=== PATIENT | male | born 1965 | race Caucasian/White ===

== ENCOUNTER → 2017-03-07 | Outpatient (CLI) | payer MEDICARE, MEDICAID ==
[~2017-03-07] MED LIST: ACTICLATE75 MG PO; ATIVAN 1MG T1 MG/TAB PO; COLACE 100100 MG/CAP PO; DILAUDID 2MG TAB2 MG PO; DITROPAN 5MG TAB5 MG PO; EFFEXOR 3737.5 MG/TA PO; EFFEXOR 75M75 MG/TAB PO; FLEXERIL 1010 MG/TAB PO; MACROBID 1100 MG/CAP PO; MARINOL 2.5MG2.5 MG PO; MOTRIN 800800 MG/TAB PO; MULTIPLE VITAMI1 CAP PO; NORCO 325 MG-51 TAB PO; PERCOCET 325 MG1 TA2 PO; VALIUM 5MG T5 MG/TAB PO; VITAMIN C500 MG PO; VITAMIN D1000 IU PO; ZANTAC 150MG T150 MG PO; ZINC10 M1
== END ==
LOC: COL.RAD 10:31
DX: K80.20 Calculus of gallbladder without cholecystitis without obstruction (principal); Q76.49 Other congenital malformations of spine, not associated with scoliosis; M89.38 Hypertrophy of bone, other site; M16.0 Bilateral primary osteoarthritis of hip; N32.89 Other specified disorders of bladder; M48.04 Spinal stenosis, thoracic region; Z93.3 Colostomy status
CPT/HCPCS: Q9967

== ENCOUNTER 2017-07-10 15:04 | Inpatient (IN) | payer MEDICARE, MEDICAID ==
[~2017-07-10] VITALS: Ht 188 cm; Wt 72.2 kg
[~2017-07-10 15:04] MED LIST changes: +BACTRIM 400 MG-1 TAB PO; +EFFEXOR-XR150 MG PO; +ELIQUIS 5MG PO; +PHARMASSURE ZIN50 MG PO; -VITAMIN D1000 IU PO; +VITAMIN D31000 I1 PO; -ZINC10 M1
[2017-07-10] MEDS ORDERED: NORCO 325 MG-7.1 TAB PO (15:45)
[2017-07-10 17:08] LABS: COLLECTION METHOD CATHETER
[2017-07-10 17:31] VITALS: BP 126/74; PULSE 99; TEMP 99.6
[2017-07-10 17:35] LABS: MUCOUS Present /lpf; PH 5 (5-8); SQUAMOUS EPITHELIAL 0-2 /hpf; URINE APPEARANCE Clear; URINE BACTERIA Many /hpf; URINE BILIRUBIN Negative (NEGATIVE); URINE BLOOD 1+ (NEGATIVE); URINE COLOR Amber; URINE GLUCOSE Negative (NEGATIVE); URINE KETONE Negative (NEGATIVE); URINE LEUKOCYTE ESTERASE 3+ (NEGATIVE); URINE NITRATE Positive (NEGATIVE); URINE PROTEIN(semi-quant) Negative (NEGATIVE); URINE RBC 0-2 /hpf; URINE UROBILINOGEN Negative (NEGATIVE); URINE WBC >50 /hpf
[2017-07-10 19:49] VITALS: BP 121/64; PULSE 120; TEMP 99.9
[2017-07-11 00:47] VITALS: BP 118/73; PULSE 104; TEMP 100.1
[2017-07-11 05:32] VITALS: BP 120/69; PULSE 72; TEMP 99.4
[2017-07-11 06:38] LABS: BASO # 0.1 (0.0-0.2); BASO % 0.3 % (0.0-2.0); EOS # 0.1 (0.0-0.7); EOS % 0.3 % (0-4.0); GRAN # 14.5 (1.4-6.5); GRAN % 75.8 % (42.2-75.2); HEMATOCRIT 37.7 % (42.0-52.0); HEMOGLOBIN 12.2 g/dl (13.5-18.0); LYMPH # 2.5 (1.2-3.4); LYMPH % 13.3 % (20.0-51.0); MEAN CELL VOLUME 97 fl (80.0-100.0); MEAN CORPUSCULAR HEMOGLOBIN 31 pg (27.0-31.0); MEAN CORPUSCULAR HGB CONC 32 g/dl (33.0-37.0); MONO # 1.8 (0.1-0.6); MONO % 9.7 % (1.7-9.3); PLATELET COUNT 358 K/mm3 (130-400); RED BLOOD COUNT 3.88 M/mm3 (4.20-5.60); REDCELL DISTRIBUTION WIDTH-CV 13.4 % (11.5-14.5)
[2017-07-11 06:47] LABS: BILIRUBIN,TOTAL 0.3 mg/dL (0.0-1.0); CALCIUM 8.2 mg/dL (8.4-10.2); CREATININE, serum 0.43 mg/dL (0.66-1.25); MAGNESIUM 1.9 mg/dL (1.6-2.3); PHOSPHOROUS 2.9 mg/dL (2.5-4.5); POTASSIUM 3.3 mmol/L (3.4-5.0); TOTAL PROTEIN 6.5 gm/dL (6.4-8.2)
[2017-07-11 07:19] VITALS: BP 125/73; PULSE 93; TEMP 99.5
[2017-07-11 11:17] VITALS: BP 110/71; PULSE 90; TEMP 98.6
[2017-07-11 15:28] VITALS: BP 127/84; PULSE 87; TEMP 98.7
[2017-07-11 20:06] VITALS: BP 125/83; PULSE 81; TEMP 98.5
[2017-07-12 00:10] VITALS: BP 127/84; PULSE 75; TEMP 99.2
[2017-07-12 03:19] VITALS: BP 128/86; PULSE 80; TEMP 98.8
[2017-07-12 07:32] VITALS: BP 135/85; PULSE 81; TEMP 98.5
[2017-07-12 08:32] LABS: BASO % 0.2 % (0.0-2.0); EOS # 0.2 (0.0-0.7); EOS % 1.1 % (0-4.0); GRAN # 9.7 (1.4-6.5); GRAN % 74.2 % (42.2-75.2); HEMATOCRIT 38.5 % (42.0-52.0); HEMOGLOBIN 12.4 g/dl (13.5-18.0); LYMPH # 2.2 (1.2-3.4); LYMPH % 16.4 % (20.0-51.0); MEAN CELL VOLUME 97 fl (80.0-100.0); MEAN CORPUSCULAR HEMOGLOBIN 31 pg (27.0-31.0); MEAN CORPUSCULAR HGB CONC 32 g/dl (33.0-37.0); MEAN PLATELET VOLUME 9.3 fl (7.4-10.4); MONO % 7.5 % (1.7-9.3); PLATELET COUNT 402 K/mm3 (130-400); RED BLOOD COUNT 3.97 M/mm3 (4.20-5.60); REDCELL DISTRIBUTION WIDTH-CV 13.1 % (11.5-14.5)
[2017-07-12 08:43] LABS: CALCIUM 8.6 mg/dL (8.4-10.2); CREATININE, serum 0.37 mg/dL (0.66-1.25); MAGNESIUM 1.8 mg/dL (1.6-2.3); POTASSIUM 3.8 mmol/L (3.4-5.0)
[2017-07-12 11:40] VITALS: BP 106/90; PULSE 94; TEMP 97.7
[2017-07-12 15:49] VITALS: BP 126/79; PULSE 73; TEMP 98.4
[2017-07-12 22:16] VITALS: BP 138/87; PULSE 81; TEMP 98.8
[2017-07-13 03:10] VITALS: BP 128/80; PULSE 83; TEMP 97.9
[2017-07-13 07:30] LABS: BASO % 0.4 % (0.0-2.0); EOS # 0.2 (0.0-0.7); EOS % 1.9 % (0-4.0); GRAN # 6.9 (1.4-6.5); GRAN % 63.6 % (42.2-75.2); HEMATOCRIT 39.5 % (42.0-52.0); LYMPH # 2.9 (1.2-3.4); LYMPH % 26.6 % (20.0-51.0); MEAN CELL VOLUME 97 fl (80.0-100.0); MEAN CORPUSCULAR HEMOGLOBIN 32 pg (27.0-31.0); MEAN CORPUSCULAR HGB CONC 33 g/dl (33.0-37.0); MEAN PLATELET VOLUME 9.3 fl (7.4-10.4); MONO # 0.8 (0.1-0.6); PLATELET COUNT 463 K/mm3 (130-400); RED BLOOD COUNT 4.07 M/mm3 (4.20-5.60)
[2017-07-13 07:47] LABS: CALCIUM 8.9 mg/dL (8.4-10.2); CREATININE, serum 0.39 mg/dL (0.66-1.25); MAGNESIUM 1.9 mg/dL (1.6-2.3); POTASSIUM 3.9 mmol/L (3.4-5.0)
[2017-07-13 08:33] VITALS: BP 125/86; PULSE 79; TEMP 98
[2017-07-13 11:41] VITALS: BP 107/68; PULSE 92; TEMP 98.4
[2017-07-13 16:20] VITALS: BP 118/69; PULSE 81; TEMP 97.7
[2017-07-13 19:58] VITALS: BP 135/88; PULSE 76; TEMP 97.4
[2017-07-14 00:07] VITALS: BP 116/82; PULSE 76; TEMP 98.6
[2017-07-14 04:18] VITALS: BP 119/81; PULSE 81; TEMP 98.5
[2017-07-14 07:01] LABS: BASO % 0.4 % (0.0-2.0); EOS # 0.3 (0.0-0.7); EOS % 2.5 % (0-4.0); GRAN # 6.6 (1.4-6.5); GRAN % 60.8 % (42.2-75.2); HEMATOCRIT 41.3 % (42.0-52.0); HEMOGLOBIN 13.4 g/dl (13.5-18.0); LYMPH # 3.1 (1.2-3.4); LYMPH % 28.2 % (20.0-51.0); MEAN CELL VOLUME 96 fl (80.0-100.0); MEAN CORPUSCULAR HEMOGLOBIN 31 pg (27.0-31.0); MEAN CORPUSCULAR HGB CONC 32 g/dl (33.0-37.0); MONO # 0.8 (0.1-0.6); MONO % 7.7 % (1.7-9.3); PLATELET COUNT 470 K/mm3 (130-400); RED BLOOD COUNT 4.31 M/mm3 (4.20-5.60); REDCELL DISTRIBUTION WIDTH-CV 12.7 % (11.5-14.5)
[2017-07-14 07:12] LABS: CALCIUM 8.9 mg/dL (8.4-10.2); CREATININE, serum 0.42 mg/dL (0.66-1.25); MAGNESIUM 1.9 mg/dL (1.6-2.3); POTASSIUM 3.9 mmol/L (3.4-5.0)
[2017-07-14 08:00] VITALS: BP 117/77; PULSE 73; TEMP 97.5
[2017-07-14] MEDS ORDERED: CIPRO 250MG TA250 MG PO (08:26)
[2017-07-14 17:48] LABS: FOLATE (FOLIC ACID) 8.3 ng/mL (7.0-31.4)
== END 2017-07-14 10:47 | disposition home or self-care (01) | DRG 698 ==
LOC: PEDS 15:04
PROVIDERS: Internal Medicine; Nurse Practitioner Family
DX: T83.511A Infection and inflammatory reaction due to indwelling urethral catheter, initial encounter (principal); A41.89 Other specified sepsis; G82.20 Paraplegia, unspecified; E46 Unspecified protein-calorie malnutrition; E44.1 Mild protein-calorie malnutrition; N39.0 Urinary tract infection, site not specified; Z68.20 Body mass index [BMI] 20.0-20.9, adult; F17.210 Nicotine dependence, cigarettes, uncomplicated; Z86.73 Personal history of transient ischemic attack (TIA), and cerebral infarction without residual deficits; Z86.718 Personal history of other venous thrombosis and embolism; E87.6 Hypokalemia; B96.89 Other specified bacterial agents as the cause of diseases classified elsewhere
CPT/HCPCS: 99223-AI; 99232-AI; 99233-AI; 99239; J0744; J1650; J1956; J2185; J7030

== ENCOUNTER → 2018-03-27 | Outpatient (CLI) | payer MEDICARE, MEDICAID ==
[~2018-03-27] MED LIST changes: +CIPRO 250MG TA250 MG PO; +NORCO 325 MG-7.1 TAB PO
== END ==
LOC: COL.RAD 12:35
DX: N31.2 Flaccid neuropathic bladder, not elsewhere classified (principal); R31.0 Gross hematuria

== ENCOUNTER 2018-04-15 13:53 | Day surgery (SDC) | payer MEDICARE, MEDICAID ==
[~2018-04-15] VITALS: Ht 185.4 cm; Wt 72.7 kg
[2018-04-15] MEDS ORDERED: EFFEXOR XR75 MG/CAP PO (14:39)
[2018-04-15] MEDS ORDERED: PRINIVIL10 MG PO (14:41)
[2018-04-15 14:42] VITALS: BP 158/108; PULSE 89; TEMP 98.4
[2018-04-15 17:55] VITALS: BP 116/84; PULSE 83
[2018-04-15 18:10] VITALS: BP 159/103; PULSE 68
[2018-04-15 18:25] VITALS: BP 144/100; PULSE 68
[2018-04-15 18:48] VITALS: BP 114/78; PULSE 84; TEMP 97.2
== END 2018-04-15 18:40 ==
LOC: SDCO 13:53
DX: N31.9 Neuromuscular dysfunction of bladder, unspecified (principal); N39.0 Urinary tract infection, site not specified; R31.9 Hematuria, unspecified; F41.9 Anxiety disorder, unspecified; F32.9 Major depressive disorder, single episode, unspecified; I10 Essential (primary) hypertension; Z86.718 Personal history of other venous thrombosis and embolism; Z79.01 Long term (current) use of anticoagulants; F17.210 Nicotine dependence, cigarettes, uncomplicated; Z99.3 Dependence on wheelchair; G82.20 Paraplegia, unspecified; V89.2XXS Person injured in unspecified motor-vehicle accident, traffic, sequela; Z79.899 Other long term (current) drug therapy; Z87.440 Personal history of urinary (tract) infections; D64.9 Anemia, unspecified; R33.9 Retention of urine, unspecified; G89.29 Other chronic pain; R51 Headache
CPT/HCPCS: J1100; J1885; J1956; J2300; J2405; J2704; J3010; J7120; Q9967

== ENCOUNTER 2019-02-28 22:21 | Inpatient (IN) | payer MEDICARE, MEDICAID ==
[~2019-02-28] VITALS: Ht 182.9 cm; Wt 83.0 kg
[~2019-02-28 22:21] MED LIST changes: +EFFEXOR XR75 MG/CAP PO; +PRINIVIL10 MG PO
[2019-02-28 23:23] LABS: BASO # 0.1 (0.0-0.2); BASO % 0.3 % (0.0-2.0); EOS % 0.1 % (0-4.0); GRAN # 17.1 (1.4-6.5); HEMOGLOBIN 11.5 g/dl (13.5-18.0); LYMPH # 1.6 (1.2-3.4); MEAN CELL VOLUME 94 fl (80.0-100.0); MEAN CORPUSCULAR HEMOGLOBIN 31 pg (27.0-31.0); MEAN CORPUSCULAR HGB CONC 33 g/dl (33.0-37.0); MEAN PLATELET VOLUME 9.6 fl (7.4-10.4); MONO # 1.2 (0.1-0.6); MONO % 5.9 % (1.7-9.3); PLATELET COUNT 231 K/mm3 (130-400); RED BLOOD COUNT 3.74 M/mm3 (4.20-5.60)
[2019-02-28 23:29] LABS: HEMATOCRIT 35.3 % (42.0-52.0)
[2019-02-28 23:33] LABS: BILIRUBIN,TOTAL 0.5 mg/dL (0.0-1.0); CALCIUM 8.4 mg/dL (8.4-10.2); CREATININE, serum 0.4 (0.66-1.25); POTASSIUM 3.5 mmol/L (3.4-5.0); TOTAL PROTEIN 6.4 gm/dL (6.4-8.2)
[2019-03-01] VITALS (8 sets, daily range): BP systolic 118–144; BP diastolic 73–84; PULSE 80–105; TEMP 97.7–101.4
[2019-03-01 00:02] LABS: COLLECTION METHOD CATHETER
[2019-03-01 00:12] LABS: MUCOUS Present /lpf; PH 8 (5-8); SQUAMOUS EPITHELIAL 0-2 /hpf; URINE APPEARANCE Cloudy; URINE BACTERIA Rare /hpf; URINE BILIRUBIN Negative (NEGATIVE); URINE BLOOD 2+ (NEGATIVE); URINE COLOR Amber; URINE GLUCOSE Negative (NEGATIVE); URINE KETONE Negative (NEGATIVE); URINE LEUKOCYTE ESTERASE 2+ (NEGATIVE); URINE NITRATE Positive (NEGATIVE); URINE PROTEIN(semi-quant) 2+ (NEGATIVE); URINE RBC >50 /hpf; URINE UROBILINOGEN >=4.0 mg/dL (NEGATIVE)
[2019-03-01 04:05] LABS: INR 1.1 (0.8-3.0); PROTHROMBIN TIME 13.2 SECONDS (9.7-12.8)
[2019-03-01] MEDS ORDERED: CELEBREX 200MG200 MG PO (05:30)
[2019-03-01] MEDS ORDERED: MIRALAX PA17 GM/Dose PO (05:34)
[2019-03-01 09:15] LABS: CALCIUM 8.2 mg/dL (8.4-10.2); CREATININE, serum 0.39 (0.66-1.25); POTASSIUM 3.4 mmol/L (3.4-5.0)
[2019-03-01 09:34] LABS: BASO % 0.2 % (0.0-2.0); EOS # 0.1 (0.0-0.7); EOS % 0.4 % (0-4.0); HEMOGLOBIN 11.5 g/dl (13.5-18.0); LYMPH # 1.8 (1.2-3.4); LYMPH % 9.7 % (20.0-51.0); MEAN CELL VOLUME 95 fl (80.0-100.0); MEAN CORPUSCULAR HEMOGLOBIN 31 pg (27.0-31.0); MEAN CORPUSCULAR HGB CONC 33 g/dl (33.0-37.0); MEAN PLATELET VOLUME 10.4 fl (7.4-10.4); MONO # 1.4 (0.1-0.6); MONO % 7.7 % (1.7-9.3); PLATELET COUNT 259 K/mm3 (130-400); RED BLOOD COUNT 3.73 M/mm3 (4.20-5.60); REDCELL DISTRIBUTION WIDTH-CV 14.2 % (11.5-14.5)
[2019-03-01 09:41] LABS: HEMATOCRIT 35.4 % (42.0-52.0)
[2019-03-02 03:44] VITALS: BP 149/81; PULSE 90; TEMP 99.5
[2019-03-02 07:28] VITALS: BP 134/88; PULSE 95; TEMP 98.4
[2019-03-02 07:54] LABS: HEMOGLOBIN 11.1 g/dl (13.5-18.0); MEAN CELL VOLUME 95 fl (80.0-100.0); MEAN CORPUSCULAR HEMOGLOBIN 31 pg (27.0-31.0); MEAN CORPUSCULAR HGB CONC 33 g/dl (33.0-37.0); MEAN PLATELET VOLUME 9.8 fl (7.4-10.4); PLATELET COUNT 290 K/mm3 (130-400); RED BLOOD COUNT 3.59 M/mm3 (4.20-5.60); REDCELL DISTRIBUTION WIDTH-CV 14.1 % (11.5-14.5)
[2019-03-02 08:10] LABS: HEMATOCRIT 34.1 % (42.0-52.0)
[2019-03-02 08:24] LABS: ALBUMIN 2.9 gm/dL (3.5-5.0); BILIRUBIN,TOTAL 0.5 mg/dL (0.0-1.0); CALCIUM 8.3 mg/dL (8.4-10.2); CREATININE, serum 0.29 (0.66-1.25); POTASSIUM 3.9 mmol/L (3.4-5.0); TOTAL PROTEIN 6.5 gm/dL (6.4-8.2)
[2019-03-02 09:09] LABS: BAND 10 % (0-10); LYMPHOCYTE 8 % (20.0-51.0); NEUTROPHILS 79 % (42.0-75.2)
[2019-03-02 09:10] LABS: PLATELET ESTIMATE NORMAL (NORMAL)
[2019-03-02 09:11] LABS: HYPOCHROMIA 1+
[2019-03-02 11:26] VITALS: BP 144/92; PULSE 89; TEMP 99.7
[2019-03-02 15:57] VITALS: BP 135/76; PULSE 93; TEMP 102.7
[2019-03-02 19:29] VITALS: BP 107/68; PULSE 77; TEMP 99.7
[2019-03-02 23:48] VITALS: BP 125/80; PULSE 80; TEMP 98.9
[2019-03-03 03:29] VITALS: BP 119/83; PULSE 81; TEMP 97.7
[2019-03-03 06:16] LABS: BASO % 0.2 % (0.0-2.0); EOS # 0.1 (0.0-0.7); EOS % 0.7 % (0-4.0); GRAN # 12.9 (1.4-6.5); GRAN % 74.2 % (42.2-75.2); HEMOGLOBIN 11.5 g/dl (13.5-18.0); LYMPH # 2.7 (1.2-3.4); LYMPH % 15.8 % (20.0-51.0); MEAN CELL VOLUME 95 fl (80.0-100.0); MEAN CORPUSCULAR HEMOGLOBIN 31 pg (27.0-31.0); MEAN CORPUSCULAR HGB CONC 33 g/dl (33.0-37.0); MEAN PLATELET VOLUME 9.5 fl (7.4-10.4); MONO # 1.4 (0.1-0.6); MONO % 8.2 % (1.7-9.3); PLATELET COUNT 300 K/mm3 (130-400); RED BLOOD COUNT 3.67 M/mm3 (4.20-5.60); REDCELL DISTRIBUTION WIDTH-CV 14.2 % (11.5-14.5)
[2019-03-03 06:19] LABS: HEMATOCRIT 34.9 % (42.0-52.0)
[2019-03-03 06:42] LABS: BILIRUBIN,TOTAL 0.5 mg/dL (0.0-1.0); CALCIUM 8.4 mg/dL (8.4-10.2); CREATININE, serum 0.4 (0.66-1.25); POTASSIUM 4.4 mmol/L (3.4-5.0); TOTAL PROTEIN 6.6 gm/dL (6.4-8.2)
[2019-03-03 07:49] VITALS: BP 128/85; PULSE 80; TEMP 99.3
[2019-03-03 12:41] VITALS: BP 125/83; PULSE 102; TEMP 99.5
[2019-03-03 17:18] VITALS: BP 131/77; PULSE 75; TEMP 98.9
[2019-03-03 19:08] VITALS: BP 117/69; PULSE 88; TEMP 99.5
[2019-03-03 23:48] VITALS: BP 118/69; PULSE 77; TEMP 99.9
[2019-03-04 03:49] VITALS: BP 110/71; PULSE 79; TEMP 98.2
[2019-03-04 06:24] LABS: HEMOGLOBIN 11.7 g/dl (13.5-18.0); MEAN CELL VOLUME 95 fl (80.0-100.0); MEAN CORPUSCULAR HEMOGLOBIN 31 pg (27.0-31.0); MEAN CORPUSCULAR HGB CONC 32 g/dl (33.0-37.0); MEAN PLATELET VOLUME 9.5 fl (7.4-10.4); PLATELET COUNT 343 K/mm3 (130-400); RED BLOOD COUNT 3.83 M/mm3 (4.20-5.60); REDCELL DISTRIBUTION WIDTH-CV 14.2 % (11.5-14.5)
[2019-03-04 06:29] LABS: HEMATOCRIT 36.3 % (42.0-52.0)
[2019-03-04 07:03] LABS: ALBUMIN 3.1 gm/dL (3.5-5.0); BILIRUBIN,TOTAL 0.3 mg/dL (0.0-1.0); CALCIUM 8.9 mg/dL (8.4-10.2); CREATININE, serum 0.41 (0.66-1.25); POTASSIUM 4.6 mmol/L (3.4-5.0); TOTAL PROTEIN 7.2 gm/dL (6.4-8.2)
[2019-03-04 07:33] VITALS: BP 125/88; PULSE 72; TEMP 98.3
[2019-03-04 07:38] LABS: BAND 5 % (0-10); EOSINOPHIL 4 % (0-4); LYMPHOCYTE 19 % (20.0-51.0); NEUTROPHILS 61 % (42.0-75.2); PLATELET ESTIMATE NORMAL (NORMAL)
[2019-03-04] MEDS ORDERED: CIPRO 500MG TA500 MG PO (08:47)
[2019-03-04 12:20] VITALS: BP 110/26; PULSE 80; TEMP 98
== END 2019-03-04 15:00 | disposition home or self-care (01) | DRG 872 ==
LOC: COL.ER 22:21 → MEDICAL 03-01 00:26
PROVIDERS: Emergency Medicine; Nurse Practitioner Family; ADMIT Family Medicine
DX: A41.9 Sepsis, unspecified organism (principal); G82.20 Paraplegia, unspecified; E87.2 Acidosis; F17.210 Nicotine dependence, cigarettes, uncomplicated; N45.2 Orchitis; R73.9 Hyperglycemia, unspecified; I10 Essential (primary) hypertension; K59.00 Constipation, unspecified; D64.9 Anemia, unspecified; N31.9 Neuromuscular dysfunction of bladder, unspecified; Z86.718 Personal history of other venous thrombosis and embolism; Z86.73 Personal history of transient ischemic attack (TIA), and cerebral infarction without residual deficits; Z86.14 Personal history of Methicillin resistant Staphylococcus aureus infection; Z98.52 Vasectomy status
CPT/HCPCS: 99222-AI; 99231-AI; 99232-AI; 99239; J1650; J1815; J1956; J2185; J7030; Q9967

== ENCOUNTER 2019-04-02 12:12 | Day surgery (SDC) | payer MEDICARE, MEDICAID ==
[~2019-04-02] VITALS: Ht 182.9 cm; Wt 75.0 kg
[~2019-04-02 12:12] MED LIST changes: +CELEBREX 200MG200 MG PO; +CIPRO 500MG TA500 MG PO; +MIRALAX PA17 GM/Dose PO
[2019-04-02 13:33] VITALS: BP 127/90; PULSE 89; TEMP 98.1
[2019-04-02 15:24] VITALS: BP 115/67; PULSE 87
--- NOTE | 2019-04-02 15:24 | NUR ---
Pt completed cystoscopy with Dr. Gillis and auto claim representative. Pt was awake and did not require sedation. Pt tolerated procedure well. VSS and WNL. Reviewed discharge information and educational packet with pt and . VSS and WNL and pt had no further concerns/question, and he meets criteria for discharge. Pt wheeled to private car with personal wheelchair.
== END 2019-04-02 15:29 | disposition home or self-care (01) ==
LOC: SDCO 12:12
DX: N31.9 Neuromuscular dysfunction of bladder, unspecified (principal); N30.80 Other cystitis without hematuria; F41.9 Anxiety disorder, unspecified; F32.9 Major depressive disorder, single episode, unspecified; I10 Essential (primary) hypertension; E78.2 Mixed hyperlipidemia; G47.00 Insomnia, unspecified; M19.90 Unspecified osteoarthritis, unspecified site; F17.210 Nicotine dependence, cigarettes, uncomplicated; Z93.3 Colostomy status; Z79.01 Long term (current) use of anticoagulants; Z88.8 Allergy status to other drugs, medicaments and biological substances; Z88.0 Allergy status to penicillin; Z86.718 Personal history of other venous thrombosis and embolism; Z86.14 Personal history of Methicillin resistant Staphylococcus aureus infection
CPT/HCPCS: C1769

== ENCOUNTER 2020-07-11 14:43 | Inpatient (IN) | payer MEDICARE, MEDICAID ==
[~2020-07-11] VITALS: Ht 185.4 cm; Wt 86.3 kg
[2020-07-11 15:40] LABS: COLLECTION METHOD CLEAN CATCH
[2020-07-11 15:52] LABS: ALBUMIN 4.5 gm/dL (3.5-5.0); BILIRUBIN,TOTAL 0.6 mg/dL (0.0-1.0); C-REACTIVE PROTEIN 2.1 mg/dL (0.0-0.9); CALCIUM 9.6 mg/dL (8.4-10.2); CREATININE, serum 0.51 (0.66-1.25); POTASSIUM 4.4 mmol/L (3.4-5.0); TOTAL PROTEIN 8.3 gm/dL (6.4-8.2)
[2020-07-11 15:59] LABS: BASO % 0.2 % (0.0-2.0); EOS # 0.1 (0.0-0.7); EOS % 0.6 % (0-4.0); GRAN # 12.5 (1.4-6.5); GRAN % 73.1 % (42.2-75.2); HEMATOCRIT 50.5 % (42.0-52.0); HEMOGLOBIN 16.4 g/dl (13.5-18.0); LYMPH # 3.2 (1.2-3.4); MEAN CELL VOLUME 97 fl (80.0-100.0); MEAN CORPUSCULAR HEMOGLOBIN 32 pg (27.0-31.0); MEAN CORPUSCULAR HGB CONC 33 g/dl (33.0-37.0); MEAN PLATELET VOLUME 9.5 fl (7.4-10.4); MONO # 1.1 (0.1-0.6); MONO % 6.6 % (1.7-9.3); PLATELET COUNT 322 K/mm3 (130-400); RED BLOOD COUNT 5.21 M/mm3 (4.20-5.60); REDCELL DISTRIBUTION WIDTH-CV 13.8 % (11.5-14.5)
[2020-07-11 16:01] LABS: PH 6 (5-8); URINE APPEARANCE Turbid; URINE COLOR Amber
[2020-07-11 16:02] LABS: URINE BILIRUBIN Negative (NEGATIVE); URINE GLUCOSE Negative (NEGATIVE); URINE KETONE Negative (NEGATIVE); URINE PROTEIN(semi-quant) 2+ (NEGATIVE)
[2020-07-11 16:03] LABS: URINE BLOOD 2+ (NEGATIVE); URINE LEUKOCYTE ESTERASE 3+ (NEGATIVE); URINE NITRATE Negative (NEGATIVE)
[2020-07-11 16:04] LABS: MUCOUS Present /lpf; SQUAMOUS EPITHELIAL None Seen /hpf; URINE RBC >50 /hpf
[2020-07-11 16:05] LABS: BUDDING YEAST Present /hpf; URINE BACTERIA Moderate /hpf
[2020-07-11] MEDS ORDERED: PRINZIDE 25 MG-1 TAB PO (18:12)
--- NOTE | 2020-07-11 19:44 | NUR ---
Telephone report recieved from MARTINE Ferrer
--- NOTE | 2020-07-11 20:20 | NUR ---
TODD Estevez and spouse at bedside
--- NOTE | 2020-07-11 21:00 | NUR ---
Pressure injury wound to perineum area pale in color, semi circular 2.5x3.5cm, and tunneling. Spouse at bedside stated it has gotten worse in the last week. Orders recieved and carried out from TODD Estevez to apply silver ointment and apply paddedd dressing until consults have seen pt. Per TODD Estevez consults can be called in morning. Existing Vu catheter with crusted exudate, catheter care provided before exchanging
[2020-07-11 21:06] VITALS: BP 110/62; PULSE 76; TEMP 98.6
[2020-07-12 00:17] VITALS: BP 95/69; PULSE 78; TEMP 98.3
--- NOTE | 2020-07-12 00:36 | NUR ---
Vancomycin Initial Dosing Pharmacy Note Ordering provider: Danny Oshea MD 55 yo M Indication: Decubitus Ulcer w/concern for osteo Goal: 15-20 Hx: To note pt is parapeligic Dosing hx not applicable as trough on record was prior to only dosing available BMI: 25.1 Wt: 86.3 SCr: 0.51 estCrCl ~ >120 ml/min Tmax: 98.6 WBC: 17.1 CRP: 2.1 BCx2 pending Urine Cx pending CT ab/pelv reporting possible UTI and decubitus ulcer with suggestion of possible chronic osteo Pt was loaded with 1.75 gm x1 (~20mg/kg). Due to pt's chronic condition, pt unlikely to follow population based kinetics. Will start a maintenance regimen of 1.5gm q12h. Will follow renal function, micro, abx plan, and levels for need to adjust therapy. Thank you for this dosing consult!
[2020-07-12 04:26] VITALS: BP 133/85; PULSE 84; TEMP 98
[2020-07-12 07:09] LABS: BASO % 0.4 % (0.0-2.0); EOS # 0.1 (0.0-0.7); EOS % 1.1 % (0-4.0); GRAN # 7.9 (1.4-6.5); GRAN % 69.2 % (42.2-75.2); HEMATOCRIT 44.4 % (42.0-52.0); LYMPH # 2.4 (1.2-3.4); LYMPH % 21.3 % (20.0-51.0); MEAN CELL VOLUME 95 fl (80.0-100.0); MEAN CORPUSCULAR HEMOGLOBIN 31 pg (27.0-31.0); MEAN CORPUSCULAR HGB CONC 32 g/dl (33.0-37.0); MONO # 0.9 (0.1-0.6); MONO % 7.6 % (1.7-9.3); PLATELET COUNT 270 K/mm3 (130-400); RED BLOOD COUNT 4.68 M/mm3 (4.20-5.60); REDCELL DISTRIBUTION WIDTH-CV 13.6 % (11.5-14.5)
[2020-07-12 07:16] LABS: HEMOGLOBIN 14.4 g/dl (13.5-18.0)
[2020-07-12 07:32] VITALS: BP 131/79; PULSE 80; TEMP 97.9
[2020-07-12 07:33] LABS: ALBUMIN 3.7 gm/dL (3.5-5.0); BILIRUBIN,TOTAL 0.5 mg/dL (0.0-1.0); CREATININE, serum 0.44 (0.66-1.25); TOTAL PROTEIN 6.8 gm/dL (6.4-8.2)
--- NOTE | 2020-07-12 08:12 | NUR ---
CALLED AND MESSAGE LEFT FOR SURGICAL CONSULT FOR A LARGE DECUBITUS ULCER THAT IS TUNNELING.
--- NOTE | 2020-07-12 08:55 | NUR ---
RETURNED CALLED. PHYSICIAN AWARE OF SURGICAL CONSULT. ORDERS TO LEAVE PERINEAL DRESSING IN PLACE UNTIL IS ABLE TO SEE PATIENT THIS AFTERNOON. NO OTHER ORDERS GIVEN AT THIS TIME.
--- NOTE | 2020-07-12 09:20 | NUR ---
PATIENT SHIFT ASSESSMENT COMPLETED. AM MEDICATIONS ADMINISTERED AT THIS TIME. PATIENT REPOSITIONED. CALL LIGHT WITHIN REACH. PATIENT DENIES ANY NEEDS AT THIS TIME.
--- NOTE | 2020-07-12 10:55 | NUR ---
PATIENT TAKEN TO MRI VIA CART. WILL WAIT FOR PATIENT ARRIVAL BACK TO ROOM 326.
--- NOTE | 2020-07-12 11:49 | NUR ---
PATIENT ARRIVED BACK TO ROOM 326 VIA CART FROM MRI. PATIENT SETTELED INTO ROOM. NOTIFIED OF PATIENT ARRIVAL BACK TO ROOM.
[2020-07-12 12:00] VITALS: BP 118/79; PULSE 77; TEMP 98.3
--- NOTE | 2020-07-12 15:42 | NUR ---
Fire Fighter met with patient to discuss discharge planning. Patient lives in [place] with his , Venecia (ph#[phone]) and sees CHIVO Mcdaniels for primary care. Patient states his son, Aidan also lives with them at this time. Patient obtains medications from [facility] with no difficulties. Patient has a wheelchair, motorized wheelchair, CPAP, and shower chair at home. Patient reports he is mostly independent with ADLS and transfers however has Venecia to assist as needed. 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 Patient was interested in completing DPOA-HC form. SW assisted patient in completing form and patient stated he wants to designate his , Venecia. MEE and RN Sima provided witness signature. SW provided original and copies to patient then placed a copy in patient's chart. Patient plans to return home upon discharge and will possibly need IV antibiotics. Patient states he has done this at home before and would like to set things up at home again with his administering the medication, which she did before. Patient is open to Home Health Services and also selected [employer] as the infusion company if needed. MEE contacted patient's , Venecia to review discharge plan. Venecia is comfortable administering the IV antibiotics if needed and is open to Home Health for teaching. Venecia would like to use [facility] if patient is agreeable to this. Venecia could not remember the name of the infusion company they used previously but was fine with whatever patient chose. MEE checked in with patient again who is agreeable to [facility]. MEE contacted Shania at [facility] and faxed referral. SW to contact Kassi at [facility] to give initial referral and will continue to follow.
[2020-07-12 16:00] VITALS: BP 109/72; PULSE 68; TEMP 97.9
--- NOTE | 2020-07-12 17:00 | NUR ---
PATIENTS RIGHT HEEL DRESSING REMOVED AND REPLACED WITH VASELINE GAUZE, 4X4 GAUZE, HYPAFIX, SECURED WITH A HEEL CUP AND SOFT HEEL BOOTS. HEEL CUP APPLIED TO LEFT HEEL CUP AND SECURED WITH HEEL BOOT. PATIENTS PERINEAL DRESSING REMOVED. ENTERED ROOM WHILE STAFF WAS RE-DRESSING PATIENTS WOUND. WOUND IRRIGATED WITH SALINE FLUSHES. WET TO DRY DRESSING PLACED TO PERINEAL WOUND. WOUND PACKED WITH 1 PIECE OF 4X4 GAUZE SOAKED IN STERILE WATER, COVERED WITH 4X4 GAUZE, AND ALLEVYN DRESSING. SILVER OINTMENT APPLIED TO TWO IRRITATED AREAS ON THE SCROTUM. CATHETER CARE PROVIDED AT THIS TIME. PATIENT TOLERATED WELL. PATIENT REPOSITIONED LAYING FLAT SO HE CAN EAT DINNER WITH HIS . CALL LIGHT IN REACH. NO OTHER NEEDS AT THIS TIME.
--- NOTE | 2020-07-12 19:00 | NUR ---
PATIENT HAS BEEN REPOSITIONED EVERY TWO HOURS TO EITHER SIDE WITH PILLOWS. BLE ELEVATED WITH PILLOWS AND HEEL BOOTS IN PLACE. PILLOW POSITIONED BETWEEN LEGS. ALVARES TO DEPENDENT DRAINAGE. PATIENT HAS DONE HIS OWN OSTOMY CARE IF STAFF BRINGS HIM THE SUPPLIES TO EMPTY AND CLEAN. PATIENT DENIED ANY SIGNIFICANT PAIN THROUGHOUT THE DAY. REPORT GIVEN TO MARTINE JACKSON.
[2020-07-12 21:24] VITALS: BP 98/64; PULSE 80; TEMP 98.1
[2020-07-13 00:06] VITALS: BP 90/61; PULSE 73; TEMP 98
[2020-07-13 04:48] VITALS: BP 111/71; PULSE 84; TEMP 97.8
[2020-07-13 06:26] LABS: BASO % 0.3 % (0.0-2.0); EOS # 0.2 (0.0-0.7); EOS % 1.7 % (0-4.0); GRAN # 7.9 (1.4-6.5); GRAN % 69.6 % (42.2-75.2); HEMATOCRIT 42.9 % (42.0-52.0); HEMOGLOBIN 14.2 g/dl (13.5-18.0); LYMPH # 2.1 (1.2-3.4); LYMPH % 18.9 % (20.0-51.0); MEAN CELL VOLUME 95 fl (80.0-100.0); MEAN CORPUSCULAR HEMOGLOBIN 32 pg (27.0-31.0); MEAN CORPUSCULAR HGB CONC 33 g/dl (33.0-37.0); MEAN PLATELET VOLUME 9.4 fl (7.4-10.4); MONO % 9.1 % (1.7-9.3); PLATELET COUNT 240 K/mm3 (130-400); REDCELL DISTRIBUTION WIDTH-CV 13.6 % (11.5-14.5)
[2020-07-13 06:39] LABS: CALCIUM 9.2 mg/dL (8.4-10.2); CREATININE, serum 0.42 (0.66-1.25); POTASSIUM 4.2 mmol/L (3.4-5.0)
[2020-07-13 08:45] VITALS: BP 102/65; PULSE 88; TEMP 97.8
--- NOTE | 2020-07-13 10:00 | NUR ---
Wet to dry dressing completed. Scant drainage to gauze that was removed, drainage is greenish/yellow. Replaced wet gauze. Patient denies pain at this time. NO complaints of nausea. Changed the dressing to right heel, vaseline gauze and gauze placed to heal. No drainage to gauze that was removed. Colostomy appliance intact. Soft stool in the colostomy bag. Vu secured to leg, urine yellow and clear. Patient is eating and drinking without issues. Patient has been resting comfortably this morning. No other changes a this time. Call light within reach. Heels floated on pillows with heel protectors on.
[2020-07-13 12:03] VITALS: BP 97/64; PULSE 78; TEMP 97.9
--- NOTE | 2020-07-13 13:37 | NUR ---
Client Onboarding Analyst contacted Kassi at [facility] and advised patient may require IV antibiotics at discharge. SW faxed initial referral to Kassi. SW attended clinical rounds and will continue to follow for discharge needs.
--- NOTE | 2020-07-13 14:11 | NUR ---
Accounting/Finance Tutor was contacted by Kassi at [facility] who advised they are not in network with patient's secondary, Medicaid [employer] so he would have a copay of $7 per week and $15-$20 per day for supplies. Kassi advised they are happy to provide services however if patient is looking for an in network provider, [facility] out of [place] is in network with [employer]. SW contacted patient's , Venecia who would prefer to go with a DME company that's in network as their budget is tight. SW contacted [facility] and faxed referral. SW confirmed with [facility] that they are in network with [employer] Medicaid.
--- NOTE | 2020-07-13 15:05 | NUR ---
Diesel Technician Mechanic spoke with Hope at [facility] who advised they can provide services to patient, however cannot ship out antibiotics over the weekend.
[2020-07-13 15:16] VITALS: BP 96/67; PULSE 73; TEMP 98.3
--- NOTE | 2020-07-13 15:30 | NUR ---
Did a complete change of the patients stage III pressure ulcer. Ulcer is about 4-5cm long, 3cm wide and 2.5cm deep. No blood noted. There are 2 deep crevices jutting off the ulcer. Cream applied as ordered. Packed wound with wet fluffed gauze. Replaced the foam dressing to the area. Placed another foam dressing to the coccyx. Heel dressing to right heel remains C/D/I. Patient tolerated dressing change without issues. No other changes at this time. Call light within reach.
--- NOTE | 2020-07-13 19:50 | NUR ---
RECEIVED CHANGE OF SHIFT REPORT FROM DAY SHIFT NURSE.
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
--- NOTE | 2020-07-13 20:00 | NUR ---
PATIENT ABLE TO PERFORM OWN COLOSTOMY CARE WITH SOME SET UP ASSIST.
[2020-07-13 20:40] VITALS: BP 109/60; PULSE 77; TEMP 97.8
[2020-07-14 00:44] VITALS: BP 101/57; PULSE 66; TEMP 97.8
[2020-07-14 04:52] VITALS: BP 107/67; PULSE 91; TEMP 97.7
[2020-07-14 06:46] LABS: BASO # 0.1 (0.0-0.2); BASO % 0.4 % (0.0-2.0); EOS # 0.2 (0.0-0.7); EOS % 1.8 % (0-4.0); GRAN # 7.6 (1.4-6.5); GRAN % 65.8 % (42.2-75.2); HEMATOCRIT 45.3 % (42.0-52.0); HEMOGLOBIN 14.7 g/dl (13.5-18.0); LYMPH # 2.4 (1.2-3.4); LYMPH % 21.2 % (20.0-51.0); MEAN CELL VOLUME 96 fl (80.0-100.0); MEAN CORPUSCULAR HEMOGLOBIN 31 pg (27.0-31.0); MEAN CORPUSCULAR HGB CONC 33 g/dl (33.0-37.0); MONO # 1.2 (0.1-0.6); MONO % 10.4 % (1.7-9.3); PLATELET COUNT 260 K/mm3 (130-400); REDCELL DISTRIBUTION WIDTH-CV 13.5 % (11.5-14.5)
[2020-07-14 06:56] LABS: CALCIUM 9.2 mg/dL (8.4-10.2); CREATININE, serum 0.43 (0.66-1.25); POTASSIUM 4.3 mmol/L (3.4-5.0)
[2020-07-14 07:14] VITALS: BP 105/67; PULSE 84; TEMP 97.8
--- NOTE | 2020-07-14 07:42 | NUR ---
CHANGE OF SHIFT REPORT GIVEN TO DAY SHIFT NURSE, SHIVAM FARLEY.
[2020-07-14 11:22] VITALS: BP 109/74; PULSE 103; TEMP 97.8
--- NOTE | 2020-07-14 13:15 | NUR ---
Pt doing well, he is sitting up in bed. Reports that his lower back is bothering him a little, but does not need anything for it. He is able to move around pretty well on his own. No needs verbalized, ok to give Vanc per pharmacy
--- NOTE | 2020-07-14 13:35 | NUR ---
Magnetic Prospecting Supervisor collaborated with RN, Francesca who advised they are still waiting on wound cultures to know what antibiotics patient will need. MEE advised Francesca that [facility] cannot deliver over the weekend. MEE updated Hope at [facility].
--- NOTE | 2020-07-14 14:00 | NUR ---
Pt has done well today. Repositioned him to his left side at this time. Dressing change to bottom done this am, pt tolerated well.
--- NOTE | 2020-07-14 15:34 | NUR ---
Report given to MARTINE Santos
[2020-07-14 15:53] VITALS: BP 108/59; PULSE 74; TEMP 98
--- NOTE | 2020-07-14 17:21 | NUR ---
Wet to dry dressing changed on ulcer, patient tolerated well. Patient assisted onto right side. BLE elevated on pillows, heel protectors on and pillow between knees. Denies pain and discomfort. No further needs expressed from the patient. Call light within reach. Contact precautions in place.
--- NOTE | 2020-07-14 19:33 | NUR ---
END OF SHIFT REPORT RECEIVED FROM DAY SHIFT NURSE. PT RESTING IN BED ON LEFT SIDE. WIFT AT SIDE ASSISTING WITH SOME OF PT'S NEEDS. CALL LIGHT IN REACH. WHITE BOARD UPDATED IN ROOM.
[2020-07-14 20:05] VITALS: BP 104/63; PULSE 72; TEMP 97.6
--- NOTE | 2020-07-14 21:50 | NUR ---
SHIFT ASSESSMENT COMPLETE. PT RESTING IN BED ON RIGHT SIDE. STATES HE HAS BEEN ON THIS SIDE FOR ABOUT 1/2 HR. ALVARES DRAINING CLEAR, YELLOW URINE. REQUEST AND GIVEN NORCO 7.5 1 TAB FOR PAIN RATED 5/10. COBAN WRAPPED AROUND IV SITE. BED ALARM ON. CALL LIGHT IN REACH.
[2020-07-15 00:16] VITALS: BP 115/65; PULSE 79; TEMP 97.1
[2020-07-15 04:11] VITALS: BP 111/60; PULSE 77; TEMP 97.6
[2020-07-15 06:40] LABS: BASO % 0.3 % (0.0-2.0); EOS # 0.2 (0.0-0.7); EOS % 1.5 % (0-4.0); GRAN % 65.9 % (42.2-75.2); HEMATOCRIT 44.2 % (42.0-52.0); HEMOGLOBIN 14.2 g/dl (13.5-18.0); LYMPH # 2.7 (1.2-3.4); LYMPH % 22.2 % (20.0-51.0); MEAN CELL VOLUME 97 fl (80.0-100.0); MEAN CORPUSCULAR HEMOGLOBIN 31 pg (27.0-31.0); MEAN CORPUSCULAR HGB CONC 32 g/dl (33.0-37.0); MEAN PLATELET VOLUME 9.9 fl (7.4-10.4); MONO # 1.2 (0.1-0.6); MONO % 9.7 % (1.7-9.3); PLATELET COUNT 263 K/mm3 (130-400); RED BLOOD COUNT 4.55 M/mm3 (4.20-5.60); REDCELL DISTRIBUTION WIDTH-CV 13.5 % (11.5-14.5)
[2020-07-15 06:47] LABS: CALCIUM 9.2 mg/dL (8.4-10.2); CREATININE, serum 0.39 (0.66-1.25); POTASSIUM 4.3 mmol/L (3.4-5.0)
--- NOTE | 2020-07-15 07:35 | NUR ---
PT HAS BEEN REPOSITIONED FROM SIDE TO SIDE WITH ONE TIME TO BACK FOR SHORTER TIME. CONTINUE TO WAIT FOR BLOOD CULTURE RESULTS. IV SITE IN LOWER R FA INFILTRATED AND RESTART WITH #22GA IN L FA BY MANAGER PET. DENIES NEED FOR NICOTINE PATCH. HAD NORCO 7.5 X 1 DURING THE NIGHT. HEELS WITH PROTECTORS ON BILAT AND FLOATED ON PILLOW. DENIES NEEDS. CALL LIGHT IN REACH.
[2020-07-15 07:55] VITALS: BP 116/74; PULSE 87; TEMP 98.1
--- NOTE | 2020-07-15 09:09 | NUR ---
PT SITTING UP IN BED AFTER EATING BREAKFAST. AM MEDS AND PO PAIN MEDS GIVEN. PT DENIES NEEDS. BILATERAL HEELS FLOATED AND HEEL PROTECTORS USED. PT MAINTAINS COLOSTOMY INDEPENDENTLY WITH SET UP ASSIST. PT RATING PAIN AT 4/10. PT REQUESTING PAIN MEDS ORDERED. PT A/OX4. UPDATED PT AND ON CURRENT LABS.
--- NOTE | 2020-07-15 10:55 | NUR ---
REPOSITIONED PT TO RIGHT SIDE. WRINKLES SMOOTHED, REPOSITIONED HEEL PROTECTORS FLOATED HEELS, PLACED PILLOW BTW KNEES. PROVIDED CATHETER CARE. FLUSHED IV AND GAVE IV ABX ORDERED. PT VERBALIZED COMFORT.
[2020-07-15 11:22] VITALS: BP 92/65; PULSE 88; TEMP 97.8
[2020-07-15 16:00] VITALS: BP 98/74; PULSE 62; TEMP 98.2
--- NOTE | 2020-07-15 17:19 | NUR ---
WET TO DRY DRESSING CHANGE TO COCCYX COMPLETE. PT TOLERATED WELL.
--- NOTE | 2020-07-15 17:59 | NUR ---
ALVARES CATHETER TO DD PROVIDED ALVARES CARE PRN THROUGHT SHIFT. PT TURNED Q 2HR PER PT REQUEST.
[2020-07-15 18:04] LABS: BASO # 0.1 (0.0-0.2); BASO % 0.5 % (0.0-2.0); EOS # 0.2 (0.0-0.7); EOS % 1.5 % (0-4.0); GRAN # 8.3 (1.4-6.5); GRAN % 68.2 % (42.2-75.2); HEMATOCRIT 44.9 % (42.0-52.0); HEMOGLOBIN 14.3 g/dl (13.5-18.0); LYMPH # 2.5 (1.2-3.4); LYMPH % 20.7 % (20.0-51.0); MEAN CELL VOLUME 99 fl (80.0-100.0); MEAN CORPUSCULAR HEMOGLOBIN 32 pg (27.0-31.0); MEAN CORPUSCULAR HGB CONC 32 g/dl (33.0-37.0); MEAN PLATELET VOLUME 9.4 fl (7.4-10.4); MONO # 1.1 (0.1-0.6); MONO % 8.7 % (1.7-9.3); PLATELET COUNT 269 K/mm3 (130-400); RED BLOOD COUNT 4.54 M/mm3 (4.20-5.60); REDCELL DISTRIBUTION WIDTH-CV 13.6 % (11.5-14.5)
[2020-07-15 19:37] VITALS: BP 117/56; PULSE 78; TEMP 98
--- NOTE | 2020-07-15 21:00 | NUR ---
Patient resting in bed. Night medications given. Dressing change on patient's coccyx complete. Did not use mepilex per patient's request. Patient tolerated well. Complaints of some pain. PRN NORCO administered. Patient repositioned to his right side and reports being comfortable. Heels in heel protectors and floated. No other needs at this time. Call light in reach.
[2020-07-16 00:09] VITALS: BP 111/75; PULSE 76; TEMP 97.8
[2020-07-16 04:31] VITALS: BP 113/58; PULSE 83; TEMP 97.7
--- NOTE | 2020-07-16 06:11 | NUR ---
Patient did well throughout the night. Repositioned every two hour. Floated heels with heel protectors on. No complaints of pain this morning. Will report off to day shift.
[2020-07-16 06:40] LABS: BASO # 0.1 (0.0-0.2); BASO % 0.5 % (0.0-2.0); EOS # 0.3 (0.0-0.7); EOS % 2.3 % (0-4.0); GRAN # 7.1 (1.4-6.5); GRAN % 62.1 % (42.2-75.2); HEMATOCRIT 43.7 % (42.0-52.0); HEMOGLOBIN 14.3 g/dl (13.5-18.0); LYMPH # 2.9 (1.2-3.4); LYMPH % 25.1 % (20.0-51.0); MEAN CELL VOLUME 96 fl (80.0-100.0); MEAN CORPUSCULAR HEMOGLOBIN 31 pg (27.0-31.0); MEAN CORPUSCULAR HGB CONC 33 g/dl (33.0-37.0); MEAN PLATELET VOLUME 9.7 fl (7.4-10.4); MONO # 1.1 (0.1-0.6); MONO % 9.7 % (1.7-9.3); PLATELET COUNT 259 K/mm3 (130-400); RED BLOOD COUNT 4.56 M/mm3 (4.20-5.60); REDCELL DISTRIBUTION WIDTH-CV 13.6 % (11.5-14.5)
[2020-07-16 06:51] LABS: CREATININE, serum 0.35 (0.66-1.25); POTASSIUM 4.6 mmol/L (3.4-5.0)
[2020-07-16 08:18] VITALS: BP 111/71; PULSE 88; TEMP 97.6
--- NOTE | 2020-07-16 08:30 | NUR ---
Patient sitting up in bed eating breakfast, talking to on speaker phone. A&Ox3. Complaints of a headache, pain medication given as requested. VSS. IV CDI. Patient dressing changed sacral area. Wet-dry 1 4x4, 1 dry 4x4 and hepiflex. Patient assisted with repositioning on right side. Heel protectors bilateral feet. Contact precautions in place. No further needs expressed from the patient. Call light within reach
[2020-07-16] MEDS ORDERED: BACTRIM DS 8001 TAB PO (09:32)
[2020-07-16 11:19] VITALS: BP 108/65; PULSE 76; TEMP 97.8
--- NOTE | 2020-07-16 11:51 | NUR ---
SW informed of patient's discharge. Nurse provided that she will be going over all discharge planning with patient and when she arrives. Physician placed in orders for HH and documenation [facility]ed to [facility] .
--- NOTE | 2020-07-16 15:32 | NUR ---
IV removed, tip intact, patient tolerated well. Discharge paperwork reviewed with the patient and . Patient verbalized an understanding to follow doctors orders. assisted with getting patient dressed. Personal belongings with the patient. Waiting on pharmacy to give a dose of abx for tonight.
--- NOTE | 2020-07-16 15:45 | NUR ---
Patient pushed himself inn the wheelchair to the ER entrance where his was waiting in the vehicle. No further needs expressed from the patient.
== END 2020-07-16 15:45 | disposition home health service (06) | DRG 593 ==
LOC: COL.ER 14:43 → SURG 19:05
PROVIDERS: Family Medicine; Hospitalist; Physician Assistant; Student in an Organized Health Care Education/Training Program; ADMIT Internal Medicine
DX: L89.314 Pressure ulcer of right buttock, stage 4 (principal); N39.0 Urinary tract infection, site not specified; G82.20 Paraplegia, unspecified; M16.0 Bilateral primary osteoarthritis of hip; I10 Essential (primary) hypertension; F32.9 Major depressive disorder, single episode, unspecified; K59.00 Constipation, unspecified; F17.210 Nicotine dependence, cigarettes, uncomplicated; B96.1 Klebsiella pneumoniae [K. pneumoniae] as the cause of diseases classified elsewhere; B95.62 Methicillin resistant Staphylococcus aureus infection as the cause of diseases classified elsewhere; Z86.718 Personal history of other venous thrombosis and embolism; Z86.73 Personal history of transient ischemic attack (TIA), and cerebral infarction without residual deficits; Z88.0 Allergy status to penicillin; Z88.1 Allergy status to other antibiotic agents; Z93.3 Colostomy status
CPT/HCPCS: 99223-AI; 99232-AI; 99239; A4314; A6248; J1650; J2185; J3370; J7030; J7050; Q9967

== ENCOUNTER 2020-09-25 13:24 | Inpatient (IN) | payer MEDICARE, MEDICAID ==
[~2020-09-25] VITALS: Ht 185.4 cm; Wt 90.9 kg
[~2020-09-25 13:24] MED LIST changes: +BACTRIM DS 8001 TAB PO; +PRINZIDE 25 MG-1 TAB PO
[2020-09-25 14:08] LABS: BASO % 0.2 % (0.0-2.0); EOS # 0.1 (0.0-0.7); EOS % 0.5 % (0-4.0); GRAN # 10.3 (1.4-6.5); GRAN % 79.5 % (42.2-75.2); HEMOGLOBIN 10.4 g/dl (13.5-18.0); LYMPH # 1.4 (1.2-3.4); LYMPH % 10.5 % (20.0-51.0); MEAN CELL VOLUME 94 fl (80.0-100.0); MEAN CORPUSCULAR HEMOGLOBIN 31 pg (27.0-31.0); MEAN CORPUSCULAR HGB CONC 33 g/dl (33.0-37.0); MEAN PLATELET VOLUME 8.7 fl (7.4-10.4); MONO # 1.1 (0.1-0.6); MONO % 8.7 % (1.7-9.3); PLATELET COUNT 377 K/mm3 (130-400); RED BLOOD COUNT 3.35 M/mm3 (4.20-5.60); REDCELL DISTRIBUTION WIDTH-CV 13.4 % (11.5-14.5)
[2020-09-25 14:11] LABS: HEMATOCRIT 31.6 % (42.0-52.0)
[2020-09-25 14:20] LABS: ALBUMIN 3.4 gm/dL (3.5-5.0); BILIRUBIN,TOTAL 0.3 mg/dL (0.0-1.0); CALCIUM 8.3 mg/dL (8.4-10.2); CREATININE, serum 1.04 (0.66-1.25); POTASSIUM 4.2 mmol/L (3.4-5.0); TOTAL PROTEIN 6.9 gm/dL (6.4-8.2)
[2020-09-25 14:27] LABS: COLLECTION METHOD CLEAN CATCH
[2020-09-25 14:42] LABS: MUCOUS Present /lpf; PH 5 (5-8); SQUAMOUS EPITHELIAL 0-2 /hpf; URINE APPEARANCE Cloudy; URINE BACTERIA None Seen /hpf; URINE BILIRUBIN Negative (NEGATIVE); URINE BLOOD Negative (NEGATIVE); URINE COLOR Amber; URINE GLUCOSE Negative (NEGATIVE); URINE KETONE Negative (NEGATIVE); URINE LEUKOCYTE ESTERASE 2+ (NEGATIVE); URINE NITRATE Negative (NEGATIVE); URINE PROTEIN(semi-quant) 1+ (NEGATIVE); URINE UROBILINOGEN >=4.0 mg/dL (NEGATIVE)
--- NOTE | 2020-09-25 17:08 | NUR ---
Vancomycin Initial Dosing Pharmacy Note Ordering provider: Nathaniel Bui D., MD Indication/duration: Complicated UTI, 7 days LABS: SCr 1.04, CrCl~77, GFR 74 Recommendation: Will give Vancomycin 1.5 gm IV x1 loading dose, then Vancomycin 1.25 gm IV q12h. Pharmacy will continue to monitor and check a Vancomycin trough on 09/27/20. Loading dose: 1.5 grams Maintenance dose: 1.25 grams every 12 hours Trough goal: 10-15 ug/mL
[2020-09-25 17:33] LABS: CREATININE, serum 0.99 (0.66-1.25); POTASSIUM 4.2 mmol/L (3.4-5.0)
[2020-09-25 18:34] VITALS: BP 95/61; PULSE 70; TEMP 97.8
--- NOTE | 2020-09-25 19:25 | NUR ---
Admission assessment completed, alert/oriented, blood pressure still a little soft but vital signs stable, he denies pain at this time, patient is parapalegic, healing wounds to his sacrum and his right heel, patient afebrile at this time, heart RRR/SR o ntele, lungs CTA/ no resp.difficutly noted, IVF started and Vanco is infusing, present in the room, meds/allergies/pharmacy reviewed with patient and , they deny othe needs at this time, report mauricio Shah RN
[2020-09-25 21:03] VITALS: BP 94/56; PULSE 75; TEMP 98
[2020-09-25 23:57] VITALS: BP 95/52; PULSE 85
[2020-09-26 03:44] VITALS: BP 111/62; PULSE 83; TEMP 98.4
--- NOTE | 2020-09-26 06:45 | NUR ---
PT SLEEPING AT THIS TIME.
[2020-09-26 08:00] VITALS: BP 128/77; PULSE 79; TEMP 97.8
--- NOTE | 2020-09-26 09:23 | NUR ---
Initial visit; Patient thanked Contract Modeler for looking in on him and offering God's blessings.
[2020-09-26 09:26] LABS: BASO % 0.2 % (0.0-2.0); EOS # 0.2 (0.0-0.7); EOS % 1.3 % (0-4.0); GRAN # 9.5 (1.4-6.5); GRAN % 79.4 % (42.2-75.2); HEMATOCRIT 31.5 % (42.0-52.0); HEMOGLOBIN 10.4 g/dl (13.5-18.0); LYMPH # 1.4 (1.2-3.4); LYMPH % 11.3 % (20.0-51.0); MEAN CELL VOLUME 97 fl (80.0-100.0); MEAN CORPUSCULAR HEMOGLOBIN 32 pg (27.0-31.0); MEAN CORPUSCULAR HGB CONC 33 g/dl (33.0-37.0); MEAN PLATELET VOLUME 8.5 fl (7.4-10.4); MONO # 0.9 (0.1-0.6); MONO % 7.2 % (1.7-9.3); PLATELET COUNT 385 K/mm3 (130-400); RED BLOOD COUNT 3.25 M/mm3 (4.20-5.60); REDCELL DISTRIBUTION WIDTH-CV 13.4 % (11.5-14.5)
[2020-09-26 09:37] LABS: CALCIUM 8.6 mg/dL (8.4-10.2); CREATININE, serum 0.49 (0.66-1.25); POTASSIUM 4.4 mmol/L (3.4-5.0)
[2020-09-26 12:07] VITALS: BP 115/76; PULSE 91; TEMP 98
[2020-09-26 16:00] VITALS: BP 116/70; PULSE 98; TEMP 97.9
--- NOTE | 2020-09-26 16:53 | NUR ---
THIS PATIENT HAS HAD AN UNEVENTFUL DAY. HE HAS BEEN SLEEPING MOST OF THE DAY D/T INABILITY TO SLEEP LAST NIGHT. THE PATIENT'S IS AT BEDSIDE AND HAS A TENDENCY TO DEMAND THINGS BE DONE OR SHE'LL DO THEM HERSELF, SHE STATES THAT SHE BROUGHT HIS MEDICATIONS INCASE THE NURSING STAFF REFUSES TO GIVE HIM HIS PAIN MEDICATIONS. DISCUSSED THE SAFETY OF THIS WITH THE PATIENT'S . (THE MEDICATIONS ARE IN THE PATIENT'S 'S PURSE, SO THIS RN CANNOT CONFINSCATE IT. THERE ARE NO OTHER COMPLAINTS AT THIS TIME.
[2020-09-26 20:52] VITALS: BP 103/72; PULSE 85; TEMP 97.8
[2020-09-26 23:53] VITALS: BP 104/62; PULSE 83; TEMP 98
[2020-09-27 04:22] VITALS: BP 113/72; PULSE 94; TEMP 98.2
--- NOTE | 2020-09-27 06:26 | NUR ---
PATIENT RESTED QUIETLY IN BED THROUGHOUT THE NIGHT. NO NEW ISSUES NOTED OR REPORTED BY PATIENT.
--- NOTE | 2020-09-27 06:56 | NUR ---
PT LAYING IN BED, PER REPORT PT SLEPT VERY WELL LAST NIGHT. THE PATIENT HAS A VANC TROUGH THAT WAS DUE AT 0530, HOWEVER LABS WERE NOT DRAWN UNTIL 0645. WILL START HIS VANCOMYCIN SOON THE LAB COMES BACK. THERE ARE NO OTHER CONCERNS AT THIS TIME. WILL CONTINUE TO MONITOR PATIENT. CALL LIGHT WITHIN REACH.
[2020-09-27 07:04] LABS: BASO % 0.3 % (0.0-2.0); EOS # 0.2 (0.0-0.7); EOS % 1.7 % (0-4.0); GRAN # 7.6 (1.4-6.5); GRAN % 69.5 % (42.2-75.2); HEMOGLOBIN 10.6 g/dl (13.5-18.0); LYMPH % 17.8 % (20.0-51.0); MEAN CELL VOLUME 97 fl (80.0-100.0); MEAN CORPUSCULAR HEMOGLOBIN 32 pg (27.0-31.0); MEAN CORPUSCULAR HGB CONC 33 g/dl (33.0-37.0); MEAN PLATELET VOLUME 8.7 fl (7.4-10.4); MONO # 1.1 (0.1-0.6); MONO % 9.9 % (1.7-9.3); PLATELET COUNT 427 K/mm3 (130-400); RED BLOOD COUNT 3.34 M/mm3 (4.20-5.60); REDCELL DISTRIBUTION WIDTH-CV 13.5 % (11.5-14.5)
[2020-09-27 07:10] LABS: HEMATOCRIT 32.4 % (42.0-52.0)
[2020-09-27 07:21] LABS: CALCIUM 8.7 mg/dL (8.4-10.2); CREATININE, serum 0.47 (0.66-1.25); POTASSIUM 4.4 mmol/L (3.4-5.0)
[2020-09-27 08:22] VITALS: BP 118/71; PULSE 86; TEMP 98.3
--- NOTE | 2020-09-27 10:34 | NUR ---
Sawing And Assembly Supervisor met with the patient to complete intake. The patient lives in [place] with his , Venecia. The patient is a person who uses a wheelchair due to paraplegia. The patient has a motorized wheelchair, shower chair, medical bed, and receives assistance with ADLs. The patient's PCP is Dr. Rahel Roberto and patient receives medications from [facility] in [place]. The patient states he has DPOA-HC filled out but not yet notorized. The patient receives fci services from [facility] 1x a week. He would like to discharge home with spouse and continued services. SW faxed udpates to [facility]. *Discharge disposition: Home with spouse and continued fci services from [facility].
[2020-09-27 12:07] VITALS: BP 115/67; PULSE 93; TEMP 97.8
[2020-09-27 15:45] VITALS: BP 100/69; PULSE 85; TEMP 98.1
[2020-09-27 20:43] VITALS: BP 110/58; PULSE 71; TEMP 98.1
[2020-09-28 00:10] VITALS: BP 99/65; PULSE 78
[2020-09-28 04:00] VITALS: BP 98/67; PULSE 76; TEMP 98.1
[2020-09-28 07:02] LABS: BASO # 0.1 (0.0-0.2); BASO % 0.6 % (0.0-2.0); EOS # 0.3 (0.0-0.7); EOS % 2.5 % (0-4.0); GRAN # 6.6 (1.4-6.5); GRAN % 65.8 % (42.2-75.2); HEMOGLOBIN 10.6 g/dl (13.5-18.0); MEAN CELL VOLUME 98 fl (80.0-100.0); MEAN CORPUSCULAR HEMOGLOBIN 31 pg (27.0-31.0); MEAN CORPUSCULAR HGB CONC 32 g/dl (33.0-37.0); MEAN PLATELET VOLUME 8.7 fl (7.4-10.4); PLATELET COUNT 433 K/mm3 (130-400); RED BLOOD COUNT 3.41 M/mm3 (4.20-5.60); REDCELL DISTRIBUTION WIDTH-CV 13.6 % (11.5-14.5)
[2020-09-28 07:06] LABS: HEMATOCRIT 33.5 % (42.0-52.0)
[2020-09-28 07:14] LABS: CALCIUM 8.8 mg/dL (8.4-10.2); CREATININE, serum 0.53 (0.66-1.25); POTASSIUM 4.8 mmol/L (3.4-5.0)
[2020-09-28] MEDS ORDERED: MACROBID 1100 MG/CAP PO (09:04)
[2020-09-28] MEDS ORDERED: DIFLUCAN 100MG100 MG PO (09:06)
[2020-09-28] MEDS ORDERED: ELIQUIS 5MG PO (09:06)
[2020-09-28 09:19] VITALS: BP 104/65; PULSE 75; TEMP 98.2
--- NOTE | 2020-09-28 09:50 | NUR ---
Pt awake and alert upon entry, talkative and appropriate, no C/O pain at this time. Shift assessments complete, left Pt call light in reach, bed in lowest psoition.
--- NOTE | 2020-09-28 14:15 | NUR ---
Pt discharged to home, discussed discharge informtion with Pt, answered questions. Pt escorted to entrance by PCT.
--- NOTE | 2020-09-28 14:40 | NUR ---
The patient discharged home today, 09/28 with support from spouse and [facility] with custodial services. MEE sent discharge orders and summary to [facility] with [facility] . There are no additional needs at this time.
== END 2020-09-28 14:17 | disposition home health service (06) | DRG 698 ==
LOC: COL.ER 13:24 → MEDICAL 14:56
PROVIDERS: Family Medicine; Physician Assistant; ADMIT Emergency Medicine
DX: T83.518A Infection and inflammatory reaction due to other urinary catheter, initial encounter (principal); A41.9 Sepsis, unspecified organism; N17.9 Acute kidney failure, unspecified; E87.1 Hypo-osmolality and hyponatremia; G82.20 Paraplegia, unspecified; F32.9 Major depressive disorder, single episode, unspecified; Y83.8 Other surgical procedures as the cause of abnormal reaction of the patient, or of later complication, without mention of misadventure at the time of the procedure; I95.9 Hypotension, unspecified; D64.9 Anemia, unspecified; G47.33 Obstructive sleep apnea (adult) (pediatric); I25.10 Atherosclerotic heart disease of native coronary artery without angina pectoris; K59.00 Constipation, unspecified; F17.200 Nicotine dependence, unspecified, uncomplicated; F17.210 Nicotine dependence, cigarettes, uncomplicated; Z86.718 Personal history of other venous thrombosis and embolism
CPT/HCPCS: 99223-AI; 99232-AI; 99239; J0692; J0696; J1644; J1650; J3370; J7030; J7050; J7120

== ENCOUNTER 2020-10-02 15:48 | Observation (INO) | payer MEDICARE, MEDICAID ==
[~2020-10-02] VITALS: Ht 185.4 cm; Wt 81.8 kg
[~2020-10-02 15:48] MED LIST changes: +DIFLUCAN 100MG100 MG PO
[2020-10-02 18:53] LABS: BASO # 0.1 (0.0-0.2); BASO % 0.4 % (0.0-2.0); EOS # 0.2 (0.0-0.7); EOS % 1.3 % (0-4.0); GRAN # 10.5 (1.4-6.5); GRAN % 69.6 % (42.2-75.2); HEMATOCRIT 34.5 % (42.0-52.0); HEMOGLOBIN 10.8 g/dl (13.5-18.0); LYMPH % 19.6 % (20.0-51.0); MEAN CELL VOLUME 99 fl (80.0-100.0); MEAN CORPUSCULAR HEMOGLOBIN 31 pg (27.0-31.0); MEAN CORPUSCULAR HGB CONC 31 g/dl (33.0-37.0); MEAN PLATELET VOLUME 8.5 fl (7.4-10.4); MONO # 1.2 (0.1-0.6); MONO % 7.9 % (1.7-9.3); PLATELET COUNT 561 K/mm3 (130-400); REDCELL DISTRIBUTION WIDTH-CV 13.6 % (11.5-14.5)
[2020-10-02 19:06] LABS: ALBUMIN 3.8 gm/dL (3.5-5.0); BILIRUBIN,TOTAL 0.2 mg/dL (0.0-1.0); C-REACTIVE PROTEIN 5.6 mg/dL (0.0-0.9); CALCIUM 9.3 mg/dL (8.4-10.2); CREATININE, serum 0.45 (0.66-1.25); POTASSIUM 4.6 mmol/L (3.4-5.0); TOTAL PROTEIN 7.6 gm/dL (6.4-8.2)
--- NOTE | 2020-10-02 23:52 | NUR ---
Patient up from ED via stretcher. Oriented to room and call light. Admission and med rec complete. Heparin infusing at 14.5 mls/hr. Lower extremities elevated and heel protecters on. Dressings on bottom clean, dry, and intact. Dressings were just changed this morning, per patient. Abdomen distended. Some gas noted in colostomy bag. Indwelling catheter draining clear yellow urine. No additional needs at this time. Call light in reach.
[2020-10-03] VITALS (7 sets, daily range): BP systolic 104–142; BP diastolic 61–86; PULSE 61–73; TEMP 97.5–98.2
[2020-10-03 04:10] LABS: INR 1.2 (0.8-3.0); PROTHROMBIN TIME 13.6 SECONDS (9.7-12.8)
[2020-10-03 04:12] LABS: PARTIAL THROMBOPLASTIN TIME 80.2 SECONDS (26.0-37.0)
--- NOTE | 2020-10-03 04:40 | NUR ---
PTT came back 80.2. No change per protocol. Verified with TODD Estevez, that we are using PTT for heparin drip. Will recheck in 6 hours.
[2020-10-03 05:00] LABS: BASO # 0.1 (0.0-0.2); BASO % 0.4 % (0.0-2.0); EOS # 0.2 (0.0-0.7); EOS % 1.7 % (0-4.0); GRAN # 7.2 (1.4-6.5); GRAN % 60.9 % (42.2-75.2); HEMOGLOBIN 10.2 g/dl (13.5-18.0); LYMPH # 3.4 (1.2-3.4); LYMPH % 28.7 % (20.0-51.0); MEAN CELL VOLUME 98 fl (80.0-100.0); MEAN CORPUSCULAR HEMOGLOBIN 31 pg (27.0-31.0); MEAN CORPUSCULAR HGB CONC 32 g/dl (33.0-37.0); MEAN PLATELET VOLUME 9.2 fl (7.4-10.4); MONO # 0.9 (0.1-0.6); MONO % 7.3 % (1.7-9.3); PLATELET COUNT 482 K/mm3 (130-400); RED BLOOD COUNT 3.27 M/mm3 (4.20-5.60); REDCELL DISTRIBUTION WIDTH-CV 13.7 % (11.5-14.5)
[2020-10-03 05:07] LABS: CALCIUM 8.6 mg/dL (8.4-10.2); CREATININE, serum 0.47 (0.66-1.25); POTASSIUM 4.4 mmol/L (3.4-5.0)
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
--- NOTE | 2020-10-03 10:30 | NUR ---
UA SENT TO LAB, RESULTS PENDING
[2020-10-03 10:33] LABS: COLLECTION METHOD CLEAN CATCH
--- NOTE | 2020-10-03 10:35 | NUR ---
PATIENT ATE 100% OF BREAKFAST AND CALLED OUT REPORTING NAUSEA AFTER EATING. NO EMESIS. GAVE PRN IV ZOFRAN.
[2020-10-03 10:40] LABS: MUCOUS Present /lpf; PH 6 (5-8); SQUAMOUS EPITHELIAL 0-2 /hpf; URINE APPEARANCE Clear; URINE BACTERIA None Seen /hpf; URINE BILIRUBIN Negative (NEGATIVE); URINE BLOOD 1+ (NEGATIVE); URINE COLOR Yellow; URINE GLUCOSE Negative (NEGATIVE); URINE KETONE Negative (NEGATIVE); URINE LEUKOCYTE ESTERASE Trace (NEGATIVE); URINE NITRATE Negative (NEGATIVE); URINE PROTEIN(semi-quant) Negative (NEGATIVE); URINE RBC 20-50 /hpf; URINE UROBILINOGEN >=4.0 mg/dL (NEGATIVE)
--- NOTE | 2020-10-03 11:00 | NUR ---
PTT WAS 72.1, NO CHANGE TO HEPARIN GTT.
--- NOTE | 2020-10-03 12:15 | NUR ---
DC'D HEP GTT PER ORDERS.
--- NOTE | 2020-10-03 17:00 | NUR ---
Solid Glass Rod Dowel Machine Operator met with patient to discuss discharge planning. Patient lives in [place] with his , Venecia and sees Dr. Rahel Roberto for primary care. Patient obtains medications from [facility]. Patient utilizes a wheelchair for ambulation. SW has a manual wheelchair, motorized wheelchair, shower chair, and hospital bed. Patient advised his assists him with ADLS as needed and he also has [facility]. Patient has DPOA-HC in chart which designates his , Venecia. Patient plans to return home upon discharge. SW contacted Venecia to discuss discharge plan. Venecia is in agreement with patient returning home but expressed frustration with current visitation policy as she wants her two grandchildren, ages 13 and 11 to be able to visit. MEE advised that per Nursing Television Newscast Director, our current policy is no visitors under 18. SW contacted [facility] and faxed updates. Discharge Plan: Home with [facility].
--- NOTE | 2020-10-03 19:30 | NUR ---
Patient's changed patient's dressings to his bottom and left heel with assistance from nurses. Vu draining clear yellow urine. Colostomy is starting to have some output.
--- NOTE | 2020-10-03 22:00 | NUR ---
Patient having complaints of general achyness. Flexeril administered. No other needs at this time. Call light in reach.
[2020-10-04 05:36] VITALS: BP 123/73; PULSE 68
[2020-10-04 08:00] VITALS: BP 113/72; PULSE 67; TEMP 98
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
[2020-10-04] MEDS ORDERED: ELIQUIS 5MG PO (08:38)
[2020-10-04] MEDS ORDERED: MACROBID 1100 MG/CAP PO (08:39)
[2020-10-04] MEDS ORDERED: MIRALAX PA17 GM/Dose PO (08:40)
--- NOTE | 2020-10-04 11:49 | NUR ---
Legal Manager attended clinical rounds with the team and patient to discharge home today with continued home health services. SW contacted patient's , Venecia who advised she would be here to cotton picker patient. EME contacted Shania at [facility] and faxed discharge orders and summary.
--- NOTE | 2020-10-04 13:00 | NUR ---
PATIENT DISCHARGING HOME VIA WC TO PERSONAL VEHICLE WITH . DISCHARGE INSTRUCTIONS WERE GIVEN AND DISCUSSED F/U APT. ANSWERED QUESTIONS/CONCERNS. DC'D LEFT FORARM IV, COVERED SITE WITH GAUZE & COBAN. TELE DC'D. PATIENT DRESSED, PERSONAL BELONGINGS PACKED, ALVARES & OSTOMY EMPTIED. PATIENT DISCHARGED.
== END 2020-10-04 13:00 | disposition home health service (06) ==
LOC: COL.ER 15:48 → SURG 21:21
PROVIDERS: Family Medicine; Student in an Organized Health Care Education/Training Program; ADMIT Student in an Organized Health Care Education/Training Program
DX: K59.09 Other constipation (principal); R10.9 Unspecified abdominal pain; R14.0 Abdominal distension (gaseous); I82.403 Acute embolism and thrombosis of unspecified deep veins of lower extremity, bilateral; L89.90 Pressure ulcer of unspecified site, unspecified stage; I10 Essential (primary) hypertension; G82.20 Paraplegia, unspecified; F32.9 Major depressive disorder, single episode, unspecified; I25.10 Atherosclerotic heart disease of native coronary artery without angina pectoris; F17.210 Nicotine dependence, cigarettes, uncomplicated; Z95.818 Presence of other cardiac implants and grafts; Z87.440 Personal history of urinary (tract) infections; Z95.828 Presence of other vascular implants and grafts; Z96.0 Presence of urogenital implants; Z79.01 Long term (current) use of anticoagulants; Z79.899 Other long term (current) drug therapy; Z93.3 Colostomy status
CPT/HCPCS: G0378; J1644; J2270; J2405; J7030; J7120; Q9967